=== PATIENT | male | born 1945 | race Caucasian/White ===

== ENCOUNTER 2017-11-27 06:09 | Day surgery (SDC) | payer MEDICARE, OTHER ==
[~2017-11-27] VITALS: Ht 180.3 cm; Wt 112.5 kg
[~2017-11-27 06:09] MED LIST: AMLO10 PO; Aspir 8181 MG PO; DOCU100 PO; FISH OIL 1,0001 EAC1 PO; METO25ER PO; NITR.4SL SL; OMEG1CAP30 PO; ZESTORETIC 20-121 EA PO
[2017-11-27] MEDS ORDERED: FURO20 PO (06:35)
[2017-11-27] MEDS ORDERED: Advair Hfa 230-12 GM (06:36)
[2017-11-27] MEDS ORDERED: Singulair4 M1 (06:36)
[2017-11-27] MEDS ORDERED: TAMS.4ER PO (06:36)
[2018-07-29] MEDS ORDERED: BUDE6HFA INH (12:07)
[2018-07-29] MEDS ORDERED: MONT10T PO (12:08)
[2018-08-02] MEDS ORDERED: ROBITUSSIN COU237 ML PO (19:57)
[2018-08-02] MEDS ORDERED: Omeprazole20 M1 PO (19:58)
[2018-08-02] MEDS ORDERED: XARELTO20 MG PO (19:58)
[2018-08-02] MEDS ORDERED: PROAIR RESPICL90 MCG INH (19:59)
[2018-08-02] MEDS ORDERED: PRED20 PO (20:02)
== END 2017-11-27 08:27 | disposition home or self-care (01) ==
LOC: ORSCSDS 06:09
PROVIDERS: Orthopaedic Surgery
PROC: 01N50ZZ Release Median Nerve, Open Approach (ICD-10-PCS; principal; 2017-11-27 07:30)
DX: G56.02 Carpal tunnel syndrome, left upper limb (principal); I10 Essential (primary) hypertension; I25.10 Atherosclerotic heart disease of native coronary artery without angina pectoris; J44.9 Chronic obstructive pulmonary disease, unspecified; E66.9 Obesity, unspecified; Z68.34 Body mass index [BMI] 34.0-34.9, adult; Z79.82 Long term (current) use of aspirin; Z79.899 Other long term (current) drug therapy

== ENCOUNTER 2019-07-08 12:11 | Emergency (ER) | payer MEDICARE, OTHER ==
[~2019-07-08] VITALS: Ht 182.9 cm; Wt 106.6 kg
[~2019-07-08 12:11] MED LIST changes: +Advair Hfa 230-12 GM; +BUDE6HFA INH; +FURO20 PO; +MONT10T PO; +Omeprazole20 M1 PO; +PRED20 PO; +PROAIR RESPICL90 MCG INH; +ROBITUSSIN COU237 ML PO; +Singulair4 M1; +TAMS.4ER PO; +XARELTO20 MG PO
[2019-07-08] MEDS ORDERED: ELIQUIS5 MG PO (12:26)
[2019-07-08 13:05] LABS: BASOPHILS ABSOLUTE AUTO 0.02 K/mm3 (0.00-0.23); BASOPHILS PERCENT AUTO 0 % (0-2); EOSINOPHILS ABSOLUTE AUTO 0.09 K/mm3 (0.00-0.68); EOSINOPHILS PERCENT AUTO 1 % (0-6); Hematocrit 44.6 % (37.0-53.0); Hemoglobin 14.8 g/dL (13.5-17.5); IMMATURE GRAN ABSOLUTE AUTO 0.02 K/mm3 (0.00-0.10); IMMATURE GRAN PERCENT AUTO 0 % (0-1); LYMPHOCYTES PERCENT AUTO 20 % (21-46); MONOCYTES ABSOLUTE AUTO 0.68 K/mm3 (0.16-1.47); MONOCYTES PERCENT AUTO 9 % (4-13); Mean Corpuscular HGB 30.6 pg (26.0-34.0); Mean Corpuscular HGB Conc 33.2 g/dL (31.5-36.5); Mean Corpuscular Volume 92 fL (80-100); Mean Platelet Volume 11.7 fL (9.1-12.4); NEUTROPHILS ABSOLUTE AUTO 5.32 K/mm3 (1.96-9.15); NEUTROPHILS PERCENT AUTO 70 % (41-73); Platelet Count 232 K/mm3 (150-400); RDW Coefficient Variation 14.5 % (11.7-14.2); RDW Standard Deviation 49.3 fL (35.1-46.3); Red Blood Cell Count 4.83 M/mm3 (4.30-5.90); White Blood Cell Count 7.63 K/mm3 (4.00-11.30)
[2019-07-08 13:29] LABS: Alanine Aminotransfer (ALT/SGP 24 U/L (12-78); Albumin, Blood 3.2 g/dL (3.4-5.0); Albumin/Globulin Ratio 0.7 (0.8-1.8); Alk Phos 86 U/L (50-136); Anion Gap 7 mmol/L (6-16); Aspartate Aminotrans (AST/SGOT 17 U/L (12-37); Bilirubin, Total 0.4 mg/dL (0.1-1.0); Blood Urea Nitrogen 15 mg/dL (8-24); Bun/Creatinine Ratio 14.9 (12.0-20.0); CO2, Blood 28 mmol/L (21-32); Calcium, Blood 8.9 mg/dL (8.5-10.1); Chloride, Blood 106 mmol/L (98-108); Creatinine, Blood 1.01 mg/dL (0.60-1.20); Globulin, Blood 4.3 g/dL (2.2-4.0); Glomerular Filtration Rate >60 (60-); Glucose, Blood 156 mg/dL (70-99); Potassium, Blood 3.5 mmol/L (3.5-5.5); Sodium, Blood 141 mmol/L (136-145); Total Protein, Blood 7.5 g/dL (6.4-8.2)
[2019-07-08 13:30] LABS: Troponin I <0.015 ng/mL (0.000-0.040)
== END 2019-07-08 14:35 | disposition home or self-care (01) ==
LOC: ER 12:11
PROVIDERS: Physician Assistant
DX: G93.89 Other specified disorders of brain (principal); E87.8 Other disorders of electrolyte and fluid balance, not elsewhere classified; I11.0 Hypertensive heart disease with heart failure; I50.9 Heart failure, unspecified; I25.10 Atherosclerotic heart disease of native coronary artery without angina pectoris; J44.9 Chronic obstructive pulmonary disease, unspecified; E78.5 Hyperlipidemia, unspecified; Z88.0 Allergy status to penicillin; Z88.8 Allergy status to other drugs, medicaments and biological substances; Z79.899 Other long term (current) drug therapy; Z87.891 Personal history of nicotine dependence
CPT/HCPCS: 36415; 70450; 80053; 84484; 85025; 93005; 93010; 99285-25

== ENCOUNTER 2020-01-22 11:54 | Emergency (ER) | payer MEDICARE, OTHER ==
[~2020-01-22] VITALS: Ht 170.2 cm; Wt 70.3 kg
[~2020-01-22 11:54] MED LIST changes: +ELIQUIS5 MG PO
[2020-01-22] MEDS ORDERED: SPIRONOLACTONE25 MG PO (12:52)
[2020-01-22] MEDS ORDERED: Robaxin-750750 MG PO (15:44)
[2020-01-22] MEDS ORDERED: METPRE4DP PO (15:44)
[2020-01-22] MEDS ORDERED: Acetaminophen-1 EAC1 PO (15:44)
[2020-01-22] MEDS ORDERED: ULTRA-LIGHT RO1 EACH MC (15:45)
== END 2020-01-22 16:29 | disposition home or self-care (01) ==
LOC: ER 11:54
DX: M47.26 Other spondylosis with radiculopathy, lumbar region (principal); I10 Essential (primary) hypertension; J44.9 Chronic obstructive pulmonary disease, unspecified; I25.10 Atherosclerotic heart disease of native coronary artery without angina pectoris; Z88.0 Allergy status to penicillin; Z88.8 Allergy status to other drugs, medicaments and biological substances; Z79.899 Other long term (current) drug therapy; Z79.01 Long term (current) use of anticoagulants; Z79.51 Long term (current) use of inhaled steroids
CPT/HCPCS: 72100; 96374; 96375; 97116; 97163; 97530; 99284-25; J1100; J1170; J2405

== ENCOUNTER 2020-02-28 13:08 | Emergency (ER) | payer MEDICARE, OTHER ==
[~2020-02-28] VITALS: Ht 172.7 cm; Wt 83.9 kg
[~2020-02-28 13:08] MED LIST changes: +Acetaminophen-1 EAC1 PO; -ELIQUIS5 MG PO; +METPRE4DP PO; +Robaxin-750750 MG PO; +SPIRONOLACTONE25 MG PO; +ULTRA-LIGHT RO1 EACH MC
[2020-02-28 14:31] LABS: BASOPHILS ABSOLUTE AUTO 0.04 K/mm3 (0.00-0.23); BASOPHILS PERCENT AUTO 1 % (0-2); EOSINOPHILS ABSOLUTE AUTO 0.06 K/mm3 (0.00-0.68); EOSINOPHILS PERCENT AUTO 1 % (0-6); Hemoglobin 14.2 g/dL (13.5-17.5); IMMATURE GRAN ABSOLUTE AUTO 0.02 K/mm3 (0.00-0.10); IMMATURE GRAN PERCENT AUTO 0 % (0-1); LYMPHOCYTES ABSOLUTE AUTO 1.29 K/mm3 (0.84-5.20); LYMPHOCYTES PERCENT AUTO 16 % (21-46); MONOCYTES ABSOLUTE AUTO 0.87 K/mm3 (0.16-1.47); MONOCYTES PERCENT AUTO 11 % (4-13); Mean Corpuscular HGB 31.2 pg (26.0-34.0); Mean Corpuscular HGB Conc 31.6 g/dL (31.5-36.5); Mean Corpuscular Volume 99 fL (80-100); Mean Platelet Volume 12.8 fL (9.1-12.4); NEUTROPHILS ABSOLUTE AUTO 5.76 K/mm3 (1.96-9.15); NEUTROPHILS PERCENT AUTO 72 % (41-73); Platelet Count 147 K/mm3 (150-400); RDW Coefficient Variation 13.5 % (11.7-14.2); RDW Standard Deviation 49.4 fL (35.1-46.3); Red Blood Cell Count 4.55 M/mm3 (4.30-5.90); Troponin I <0.015 ng/mL (0.000-0.040); White Blood Cell Count 8.04 K/mm3 (4.00-11.30)
[2020-02-28 14:32] LABS: Alanine Aminotransfer (ALT/SGP 49 U/L (12-78); Albumin, Blood 3.2 g/dL (3.4-5.0); Albumin/Globulin Ratio 0.9 (0.8-1.8); Alk Phos 207 U/L (50-136); Anion Gap 5 mmol/L (6-16); Aspartate Aminotrans (AST/SGOT 27 U/L (12-37); Bilirubin, Total 1.1 mg/dL (0.1-1.0); Blood Urea Nitrogen 23 mg/dL (8-24); Bun/Creatinine Ratio 12.2 (12.0-20.0); CO2, Blood 26 mmol/L (21-32); Calcium, Blood 8.7 mg/dL (8.5-10.1); Chloride, Blood 108 mmol/L (98-108); Creatinine, Blood 1.89 mg/dL (0.60-1.20); Globulin, Blood 3.7 g/dL (2.2-4.0); Glomerular Filtration Rate 37 (60-); Glucose, Blood 132 mg/dL (70-99); Potassium, Blood 4.5 mmol/L (3.5-5.5); Sodium, Blood 139 mmol/L (136-145); Total Protein, Blood 6.9 g/dL (6.4-8.2)
[2020-02-28 15:03] LABS: Free Thyroxine 1.16 ng/dL (0.70-1.60)
[2020-02-28 15:06] LABS: Thyroid Stimulating Hormone 1.63 uIU/mL (0.360-4.800)
[2020-02-28] MEDS ORDERED: LOSA50 PO (15:30)
[2020-02-28] MEDS ORDERED: ABAT250V (15:31)
[2020-02-28] MEDS ORDERED: ELIQUIS5 MG PO (15:31)
== END 2020-02-28 17:00 | disposition home or self-care (01) ==
LOC: ER 13:08
PROVIDERS: Emergency Medicine
DX: R00.1 Bradycardia, unspecified (principal); R42 Dizziness and giddiness; I10 Essential (primary) hypertension; J44.9 Chronic obstructive pulmonary disease, unspecified; I25.10 Atherosclerotic heart disease of native coronary artery without angina pectoris; Z88.0 Allergy status to penicillin; Z88.8 Allergy status to other drugs, medicaments and biological substances; Z79.899 Other long term (current) drug therapy; Z79.01 Long term (current) use of anticoagulants
CPT/HCPCS: 36415; 71046; 80053; 83690; 83735; 84439; 84443; 84484; 85025; 93005; 93010; 99284-25

== ENCOUNTER 2020-11-09 23:32 | Emergency (ER) | payer MEDICARE, OTHER ==
[~2020-11-09] VITALS: Ht 180.3 cm; Wt 104.3 kg
[~2020-11-09 23:32] MED LIST changes: +ABAT250V; -TAMS.4ER PO
[2020-11-10 00:47] LABS: BASOPHILS ABSOLUTE AUTO 0.02 K/mm3 (0.00-0.23); BASOPHILS PERCENT AUTO 0 % (0-2); EOSINOPHILS ABSOLUTE AUTO 0.06 K/mm3 (0.00-0.68); EOSINOPHILS PERCENT AUTO 1 % (0-6); Hematocrit 39.3 % (37.0-53.0); Hemoglobin 13.5 g/dL (13.5-17.5); IMMATURE GRAN ABSOLUTE AUTO 0.02 K/mm3 (0.00-0.10); IMMATURE GRAN PERCENT AUTO 0 % (0-1); LYMPHOCYTES ABSOLUTE AUTO 0.43 K/mm3 (0.84-5.20); LYMPHOCYTES PERCENT AUTO 6 % (21-46); MONOCYTES ABSOLUTE AUTO 0.81 K/mm3 (0.16-1.47); MONOCYTES PERCENT AUTO 11 % (4-13); Mean Corpuscular HGB 33.2 pg (26.0-34.0); Mean Corpuscular HGB Conc 34.4 g/dL (31.5-36.5); Mean Corpuscular Volume 97 fL (80-100); Mean Platelet Volume 11.1 fL (9.1-12.4); NEUTROPHILS PERCENT AUTO 82 % (41-73); Platelet Count 139 K/mm3 (150-400); RDW Coefficient Variation 13.4 % (11.7-14.2); RDW Standard Deviation 48.5 fL (35.1-46.3); Red Blood Cell Count 4.07 M/mm3 (4.30-5.90); White Blood Cell Count 7.44 K/mm3 (4.00-11.30)
[2020-11-10 01:04] LABS: Anion Gap 7 mmol/L (6-16); Blood Urea Nitrogen 28 mg/dL (8-24); Bun/Creatinine Ratio 19.9 (12.0-20.0); CO2, Blood 22 mmol/L (21-32); Calcium, Blood 8.9 mg/dL (8.5-10.1); Chloride, Blood 111 mmol/L (98-108); Creatinine, Blood 1.41 mg/dL (0.60-1.20); Glomerular Filtration Rate 52 (60-); Glucose, Blood 113 mg/dL (70-99); Potassium, Blood 4.6 mmol/L (3.5-5.5); Sodium, Blood 140 mmol/L (136-145); Troponin I <0.015 ng/mL (0.000-0.040)
[2020-11-10 02:37] LABS: Source, Urine Clean Catch
[2020-11-10 02:39] LABS: Bilirubin, Urine Neg (Neg); Blood, Urine Neg (Neg); Color, Urine Yellow (P-Yellow); Glucose Qualitative, Urine Neg (Neg); Ketones, Urine Neg (Neg); Leukocyte Esterase, Urine Neg (Neg); Nitrite, Urine Neg (Neg); Protein, Urine Neg (Neg); Urobilinogen, Urine NORM (Normal)
[2020-11-10 02:40] LABS: Appearance, Urine Clear (Clear)
== END 2020-11-10 04:38 | disposition home or self-care (01) ==
LOC: ER 23:32
PROVIDERS: Student in an Organized Health Care Education/Training Program
DX: R53.1 Weakness (principal); I10 Essential (primary) hypertension; Z88.0 Allergy status to penicillin; Z88.8 Allergy status to other drugs, medicaments and biological substances; Z79.899 Other long term (current) drug therapy; Z87.891 Personal history of nicotine dependence
CPT/HCPCS: 70450; 80048; 81003; 84484; 85025; 93005; 93010; 99284-25

== ENCOUNTER 2020-12-30 19:00 | Observation (INO) | payer MEDICARE, OTHER ==
[~2020-12-30] VITALS: Ht 177.8 cm; Wt 98.7 kg
[2020-12-30 19:31] LABS: BASOPHILS ABSOLUTE AUTO 0.02 K/mm3 (0.00-0.23); BASOPHILS PERCENT AUTO 0 % (0-2); EOSINOPHILS ABSOLUTE AUTO 0.14 K/mm3 (0.00-0.68); EOSINOPHILS PERCENT AUTO 3 % (0-6); Hematocrit 31.2 % (37.0-53.0); Hemoglobin 10.4 g/dL (13.5-17.5); IMMATURE GRAN ABSOLUTE AUTO 0.04 K/mm3 (0.00-0.10); IMMATURE GRAN PERCENT AUTO 1 % (0-1); LYMPHOCYTES ABSOLUTE AUTO 1.15 K/mm3 (0.84-5.20); LYMPHOCYTES PERCENT AUTO 21 % (21-46); MONOCYTES ABSOLUTE AUTO 0.64 K/mm3 (0.16-1.47); MONOCYTES PERCENT AUTO 12 % (4-13); Mean Corpuscular HGB 33.7 pg (26.0-34.0); Mean Corpuscular HGB Conc 33.3 g/dL (31.5-36.5); Mean Corpuscular Volume 101 fL (80-100); Mean Platelet Volume 12.3 fL (9.1-12.4); NEUTROPHILS ABSOLUTE AUTO 3.48 K/mm3 (1.96-9.15); NEUTROPHILS PERCENT AUTO 64 % (41-73); Platelet Count 190 K/mm3 (150-400); RDW Coefficient Variation 15.7 % (11.7-14.2); RDW Standard Deviation 58.1 fL (35.1-46.3); Red Blood Cell Count 3.09 M/mm3 (4.30-5.90); White Blood Cell Count 5.47 K/mm3 (4.00-11.30)
[2020-12-30 19:42] LABS: Albumin, Blood 2.6 g/dL (3.4-5.0); Albumin/Globulin Ratio 0.9 (0.8-1.8); Bilirubin, Total 1.7 mg/dL (0.1-1.0); Bun/Creatinine Ratio 16.1 (12.0-20.0); Calcium, Blood 8.3 mg/dL (8.5-10.1); Creatinine, Blood 1.86 mg/dL (0.60-1.20); Globulin, Blood 2.8 g/dL (2.2-4.0); Potassium, Blood 4.9 mmol/L (3.5-5.5); Total Protein, Blood 5.4 g/dL (6.4-8.2)
[2020-12-30 20:48] LABS: Source, Urine Clean Catch
[2020-12-30 20:52] LABS: Appearance, Urine Clear (Clear); Bilirubin, Urine Neg (Neg); Blood, Urine Neg (Neg); Color, Urine Amber (P-Yellow); Glucose Qualitative, Urine Neg (Neg); Ketones, Urine Neg (Neg); Leukocyte Esterase, Urine 1+ (Neg); Nitrite, Urine Neg (Neg); Protein, Urine Neg (Neg); Urobilinogen, Urine NORM (Normal); pH, Urine 6.5 (5.0-8.0)
[2020-12-30 21:00] LABS: Bacteria Mod /hpf; Red Blood Cells, Urine 0-2 /hpf (0-2); Squamous Epithelial Cells Few /hpf (Few); White Blood Cells, Urine 0-2 /hpf (0-5)
[2020-12-30] MEDS ORDERED: TRAZ50 PO (22:18)
[2020-12-30] MEDS ORDERED: ELIQUIS5 MG PO (22:18)
[2020-12-30] MEDS ORDERED: LOSA50 PO (22:19)
[2020-12-30] MEDS ORDERED: SPIR25 PO (22:19)
[2020-12-30] MEDS ORDERED: TAMS.4ER PO (22:19)
--- NOTE | 2020-12-31 01:04 | NUR ---
DEVICE INTERREGATION DONE IN ER AT THE TIME OF ORDER, PACEMAKER WNL.
--- NOTE | 2020-12-31 01:41 | NUR ---
ADMISSION HX OBTAINED ADMISSION HISTORY FROM [facility]. POOR HISTORIAN. PT STATES THAT HE DOES NOT KNOW HIS MEDICAL HISTORY, WAS ABLE TO ANSWER SOME QUESTIONS. MED REC INCOMPLETE. SCREW MACHINE HAND LIBERTAD MCDANIEL RN AWARE.
--- NOTE | 2020-12-31 04:18 | NUR ---
SHIFT SUMMARY PT ER ADMIT THIS SHIFT OBS STATUS FOR SYNCOPE. PT HAS HAD NO EPISODES OF SYNCOPE SINCE ARRIVING TO THE UNIT ORTHOSTATIC VITALS ARE NEGATIVE. PT A/O TO SELF, PLACE, PRESIDENT. FORGETFUL TO YEAR AND TIME. IVF INFUSING ORDERED. NO COMPLAINTS SINCE ARRIVING TO THE UNIT. PENDING CARDIOLOGY CONSULT AT THIS TIME. NSR ON TELE. VITALS STABLE. BED IN LOWEST POSITION, CALL LIGHT WITHIN REACH.
[2020-12-31 07:43] LABS: BASOPHILS ABSOLUTE AUTO 0.03 K/mm3 (0.00-0.23); BASOPHILS PERCENT AUTO 0 % (0-2); EOSINOPHILS ABSOLUTE AUTO 0.15 K/mm3 (0.00-0.68); EOSINOPHILS PERCENT AUTO 2 % (0-6); Hematocrit 32.8 % (37.0-53.0); Hemoglobin 10.9 g/dL (13.5-17.5); IMMATURE GRAN ABSOLUTE AUTO 0.03 K/mm3 (0.00-0.10); IMMATURE GRAN PERCENT AUTO 0 % (0-1); LYMPHOCYTES ABSOLUTE AUTO 1.18 K/mm3 (0.84-5.20); LYMPHOCYTES PERCENT AUTO 16 % (21-46); MONOCYTES ABSOLUTE AUTO 0.88 K/mm3 (0.16-1.47); MONOCYTES PERCENT AUTO 12 % (4-13); Mean Corpuscular HGB 33.7 pg (26.0-34.0); Mean Corpuscular HGB Conc 33.2 g/dL (31.5-36.5); Mean Corpuscular Volume 102 fL (80-100); Mean Platelet Volume 12.6 fL (9.1-12.4); NEUTROPHILS ABSOLUTE AUTO 5.17 K/mm3 (1.96-9.15); NEUTROPHILS PERCENT AUTO 70 % (41-73); Platelet Count 184 K/mm3 (150-400); RDW Coefficient Variation 15.6 % (11.7-14.2); RDW Standard Deviation 57.7 fL (35.1-46.3); Red Blood Cell Count 3.23 M/mm3 (4.30-5.90); White Blood Cell Count 7.44 K/mm3 (4.00-11.30)
[2020-12-31 08:07] LABS: Bun/Creatinine Ratio 18.5 (12.0-20.0); Calcium, Blood 8.2 mg/dL (8.5-10.1); Creatinine, Blood 1.57 mg/dL (0.60-1.20); Potassium, Blood 4.7 mmol/L (3.5-5.5)
--- NOTE | 2020-12-31 17:26 | NUR ---
SUMMARY PT SITTING UP IN BED WATCHING TV AND VISITING WITH HIS , PT IS ALERT AND ORIENTED, [place], PLEASANT AND COOPERATIVE WITH CARE, NO SYNCOPE OR DIZZINESS T/O THE DAY, PT UP WITH 1P ASSIST, AND ABLE TO TAKE A SHOWER TODAY, PT DENIES ANY CHEST PAIN OR SOB, HOPEFUL TO DC HOME TOMORROW, VSS, WILL CONT TO MONITOR
[2021-01-01 04:46] LABS: Hematocrit 31.5 % (37.0-53.0); Hemoglobin 10.4 g/dL (13.5-17.5); Mean Corpuscular Volume 103 fL (80-100); Mean Platelet Volume 12.4 fL (9.1-12.4); Platelet Count 170 K/mm3 (150-400); RDW Coefficient Variation 15.7 % (11.7-14.2); RDW Standard Deviation 58.9 fL (35.1-46.3); Red Blood Cell Count 3.06 M/mm3 (4.30-5.90); White Blood Cell Count 5.62 K/mm3 (4.00-11.30)
[2021-01-01 05:30] LABS: Albumin, Blood 2.4 g/dL (3.4-5.0); Anion Gap 5 mmol/L (6-16); Blood Urea Nitrogen 24 mg/dL (8-24); Bun/Creatinine Ratio 17.4 (12.0-20.0); CO2, Blood 25 mmol/L (21-32); Calcium, Blood 8.4 mg/dL (8.5-10.1); Chloride, Blood 110 mmol/L (98-108); Creatinine, Blood 1.38 mg/dL (0.60-1.20); Ferritin, Serum 657 ng/mL (26-388); Glomerular Filtration Rate 53 (60-); Glucose, Blood 91 mg/dL (70-99); Iron Serum 143 ug/dL (65-175); Percent Saturation 67.1 % (20.0-50.0); Phosphorus, Blood 3.2 mg/dL (2.5-4.9); Potassium, Blood 4.7 mmol/L (3.5-5.5); Sodium, Blood 140 mmol/L (136-145); Total Iron Binding Capacity 213 ug/dL (250-450)
--- NOTE | 2021-01-01 05:55 | NUR ---
PT IS A/O, LONE PINE. IND TO BATHROOM, TELE MONITOR PACED. POSSIBLE D/C HOME TODAY.
--- NOTE | 2021-01-01 15:43 | NUR ---
PATIENT DISCHARGE: PATIENT DISCHARGED TO HOME THIS SHIFT. MEDICATION RECONCILIATION COMPLETED; MED LIST FAXED TO [facility] IN [place]. DISCHARGE EDUCATION COMPLETED WITH PATIENT AND FAMILY. PATIENT TRANSPORTED TO EXIT BY [facility] STAFF WITH WHEELCHAIR AT 1516. PATIENT DEPARTED [facility] VIA PRIVATE AUTO.
== END 2021-01-01 15:15 | disposition home or self-care (01) ==
LOC: ER 19:00 → MEDS 19:01
PROVIDERS: Emergency Medicine; Internal Medicine; ADMIT Family Medicine
DX: R55 Syncope and collapse (principal); I95.1 Orthostatic hypotension; E86.0 Dehydration; I12.9 Hypertensive chronic kidney disease with stage 1 through stage 4 chronic kidney disease, or unspecified chronic kidney disease; N18.30 Chronic kidney disease, stage 3 unspecified; D63.8 Anemia in other chronic diseases classified elsewhere; I25.10 Atherosclerotic heart disease of native coronary artery without angina pectoris; I48.0 Paroxysmal atrial fibrillation; N40.0 Benign prostatic hyperplasia without lower urinary tract symptoms; G51.0 Bell's palsy; J44.9 Chronic obstructive pulmonary disease, unspecified; N17.9 Acute kidney failure, unspecified; E78.00 Pure hypercholesterolemia, unspecified; R82.90 Unspecified abnormal findings in urine; I48.92 Unspecified atrial flutter; Z88.0 Allergy status to penicillin; Z88.8 Allergy status to other drugs, medicaments and biological substances; Z79.01 Long term (current) use of anticoagulants; Z95.1 Presence of aortocoronary bypass graft; Z87.891 Personal history of nicotine dependence; Z95.0 Presence of cardiac pacemaker; Z85.841 Personal history of malignant neoplasm of brain; Z85.528 Personal history of other malignant neoplasm of kidney; Z90.5 Acquired absence of kidney; Z66 Do not resuscitate
CPT/HCPCS: 36415; 70450; 80048; 80053; 80069; 81001; 82607; 82728; 82746; 83540; 83550; 83735; 84484; 85025; 85027; 87086; 93005; 93010; 93308; 93321; 97110; 97161; 99285-25; A9270; J7030

== ENCOUNTER 2021-02-13 13:51 | Observation (INO) | payer MEDICARE, OTHER ==
[~2021-02-13] VITALS: Ht 177.8 cm; Wt 101.6 kg
[~2021-02-13 13:51] MED LIST changes: +ELIQUIS5 MG PO; +LOSA50 PO; +SPIR25 PO; +TAMS.4ER PO; +TRAZ50 PO
[2021-02-13 14:31] LABS: BASOPHILS ABSOLUTE AUTO 0.02 K/mm3 (0.00-0.23); BASOPHILS PERCENT AUTO 0 % (0-2); EOSINOPHILS ABSOLUTE AUTO 0.02 K/mm3 (0.00-0.68); EOSINOPHILS PERCENT AUTO 0 % (0-6); Hematocrit 41.5 % (37.0-53.0); Hemoglobin 13.7 g/dL (13.5-17.5); IMMATURE GRAN ABSOLUTE AUTO 0.02 K/mm3 (0.00-0.10); IMMATURE GRAN PERCENT AUTO 0 % (0-1); LYMPHOCYTES ABSOLUTE AUTO 0.22 K/mm3 (0.84-5.20); LYMPHOCYTES PERCENT AUTO 3 % (21-46); MONOCYTES ABSOLUTE AUTO 0.67 K/mm3 (0.16-1.47); MONOCYTES PERCENT AUTO 8 % (4-13); Mean Corpuscular Volume 103 fL (80-100); Mean Platelet Volume 11.5 fL (9.1-12.4); NEUTROPHILS ABSOLUTE AUTO 7.58 K/mm3 (1.96-9.15); NEUTROPHILS PERCENT AUTO 89 % (41-73); Platelet Count 144 K/mm3 (150-400); RDW Coefficient Variation 13.3 % (11.7-14.2); RDW Standard Deviation 51.2 fL (35.1-46.3); Red Blood Cell Count 4.03 M/mm3 (4.30-5.90); White Blood Cell Count 8.53 K/mm3 (4.00-11.30)
[2021-02-13 14:32] LABS: Source, Urine Clean Catch
[2021-02-13 14:37] LABS: Appearance, Urine Clear (Clear); Bilirubin, Urine Neg (Neg); Blood, Urine Neg (Neg); Color, Urine Yellow (P-Yellow); Glucose Qualitative, Urine Neg (Neg); Ketones, Urine Neg (Neg); Leukocyte Esterase, Urine Neg (Neg); Nitrite, Urine Neg (Neg); Protein, Urine 1+ (Neg); Specific Gravity, Urine 1.015 (1.003-1.022); Urobilinogen, Urine NORM (Normal)
[2021-02-13 14:40] LABS: Alanine Aminotransfer (ALT/SGP 292 U/L (12-78); Albumin, Blood 3.4 g/dL (3.4-5.0); Albumin/Globulin Ratio 0.9 (0.8-1.8); Alk Phos 202 U/L (50-136); Anion Gap 2 mmol/L (6-16); Aspartate Aminotrans (AST/SGOT 290 U/L (12-37); Bilirubin, Total 1.1 mg/dL (0.1-1.0); Blood Urea Nitrogen 16 mg/dL (8-24); Bun/Creatinine Ratio 12.5 (12.0-20.0); CO2, Blood 26 mmol/L (21-32); Calcium, Blood 8.7 mg/dL (8.5-10.1); Chloride, Blood 105 mmol/L (98-108); Creatinine, Blood 1.28 mg/dL (0.60-1.20); Globulin, Blood 3.6 g/dL (2.2-4.0); Glomerular Filtration Rate 58 (60-); Glucose, Blood 106 mg/dL (70-99); Potassium, Blood 4.5 mmol/L (3.5-5.5); Sodium, Blood 133 mmol/L (136-145); Troponin I <0.015 ng/mL (0.000-0.040)
[2021-02-13 15:07] LABS: BAND PERCENT MAN 8 % (0-8); BASOPHILS PERCENT MAN 0 % (0-2); EOSINOPHILS PERCENT MAN 0 % (0-6); LYMPHOCYTES ABSOLUTE MAN 0.25 K/mm3 (0.84-5.20); LYMPHOCYTES PERCENT MAN 3 % (21-46); MONOCYTES ABSOLUTE MAN 0.42 K/mm3 (0.16-1.47); MONOCYTES PERCENT MAN 5 % (4-13); NEUTROPHILS ABSOLUTE MAN 7.84 K/mm3 (1.96-9.15); SEG NEUTROPHILS PERCENT MAN 84 % (41-73); TOTAL CELLS COUNTED 100
[2021-02-13] MEDS ORDERED: MONT10T PO (22:10)
[2021-02-13] MEDS ORDERED: THERA-D2000 UNIT PO (22:11)
--- NOTE | 2021-02-13 22:55 | NUR ---
PT ADMITTED TO FLOOR AT 2055. PT IS ABLE TO ANSWER QUESTIONS APPROPRIATELY BUT IS FORTGETFUL AND IS A POOR HISTORIAN. TEMP OF 100.8 ORALLY UPON ADMISSION. ROOM TEMP TURNED DOWN, ONLY A THIN SHEET ON, SOCKS TAKEN OFF AND A COOL WASHCLOTH APPLIED TO FOREHEAD. PT DENIES CHILLS AND MUSCLE ACHES. HOSPALIST JULIO NOTIFIED OF TEMP. NO NEW ORDERS- STATES CONTINUE TO WATCH. WILL CONTINUE TO MONITOR. TEMP RE-ASSESSED. INCREASED TO 101.6 F ORALLY. ICE PACK PROVIDED UNDER BILATERALLY AXILLARY, FAN PROVIDED, COOL WASHCLOTH ON FOREHEAD. ENCOURAGED TO DRINK ICE WATER. BED ALARM ON, WILL CONTINUE TO MONITOR.
[2021-02-13 23:02] LABS: SARS-Cov-2 (COVID-19) PCR, MMC NEGATIVE (NEGATIVE)
[2021-02-14 04:45] LABS: BASOPHILS ABSOLUTE AUTO 0.02 K/mm3 (0.00-0.23); BASOPHILS PERCENT AUTO 0 % (0-2); EOSINOPHILS ABSOLUTE AUTO 0.04 K/mm3 (0.00-0.68); EOSINOPHILS PERCENT AUTO 1 % (0-6); Hematocrit 35.1 % (37.0-53.0); Hemoglobin 11.7 g/dL (13.5-17.5); IMMATURE GRAN ABSOLUTE AUTO 0.03 K/mm3 (0.00-0.10); IMMATURE GRAN PERCENT AUTO 0 % (0-1); LYMPHOCYTES ABSOLUTE AUTO 0.55 K/mm3 (0.84-5.20); LYMPHOCYTES PERCENT AUTO 7 % (21-46); MONOCYTES ABSOLUTE AUTO 0.87 K/mm3 (0.16-1.47); MONOCYTES PERCENT AUTO 11 % (4-13); Mean Corpuscular HGB 33.6 pg (26.0-34.0); Mean Corpuscular HGB Conc 33.3 g/dL (31.5-36.5); Mean Corpuscular Volume 101 fL (80-100); Mean Platelet Volume 11.8 fL (9.1-12.4); NEUTROPHILS ABSOLUTE AUTO 6.27 K/mm3 (1.96-9.15); NEUTROPHILS PERCENT AUTO 81 % (41-73); Platelet Count 123 K/mm3 (150-400); RDW Coefficient Variation 13.2 % (11.7-14.2); RDW Standard Deviation 49.5 fL (35.1-46.3); Red Blood Cell Count 3.48 M/mm3 (4.30-5.90); White Blood Cell Count 7.78 K/mm3 (4.00-11.30)
--- NOTE | 2021-02-14 04:46 | NUR ---
OUTBOUND SALES AGENT SUMMARY PT IS A/O X3 WITH FORGETFULNESS. TEMPATURE IS BACK TO NORMAL. PT DENIES CHILLS. INCONTIENT TO BLADDER, ATTENDS IN PLACE. ROOM AIR, MAINTAINING GOOD 02 SATS. SKIN APPEARS C.D.I. SCDS IN PLACE. DENIES PAIN, SOB, NAUSEA. VSS. BED ALARM ON, CALL LIGHT WITHIN REACH. WILL CONTINIUE TO MONITOR.
[2021-02-14 05:03] LABS: Albumin, Blood 2.7 g/dL (3.4-5.0); Albumin/Globulin Ratio 0.9 (0.8-1.8); Bun/Creatinine Ratio 10.8 (12.0-20.0); Calcium, Blood 8.1 mg/dL (8.5-10.1); Creatinine, Blood 1.3 mg/dL (0.60-1.20); Globulin, Blood 3.1 g/dL (2.2-4.0); Magnesium, Blood 1.9 mg/dL (1.6-2.4); Potassium, Blood 3.9 mmol/L (3.5-5.5); Total Protein, Blood 5.8 g/dL (6.4-8.2)
--- NOTE | 2021-02-14 10:34 | NUR ---
CODE STATUS CHANGE- FULL CODE AFTER DISCUSSION WITH THE PT & HIS , THEY ARE BOTH WANTING RESUSITATION TO BE ATTEPTED BEFORE TREATMENT IS WITHDRAWN. DR. BENSON NOTIFIED & PT CHANGED TO FULL CODE. PURPLE WRIST BAND REMOVED.
--- NOTE | 2021-02-14 14:08 | NUR ---
REPORT CALLED TO TAMIKA. REPORT CALLED TO T[facility]IKA NURSE, WENDIE.
--- NOTE | 2021-02-14 14:09 | NUR ---
FLAGYL GIVEN EARLY PER MD VERBAL ORDER.
--- NOTE | 2021-02-14 15:15 | NUR ---
DISCHARGE PT DISCHARGED WITH [facility] TO TRANSPORT TO [facility]. PT AT BEDSIDE & WILL BE DRIVING TO [place] LATER TODAY. PARAMEDICS DENIED FURTHER QUESTIONS AT THIS TIME.
--- NOTE | 2021-02-14 15:20 | NUR ---
RAILROAD CRANE OPERATOR DOC REVIEW THIS RN ASSESSED THE PT. THIS RN REVIEWED AND AGREES WITH STUDENTS DOCUMENTATION AND ASSESSMENT.
[2021-02-15 07:08] LABS: HBSAG SCREEN Negative (Negative); HEP A AB, IGM Negative (Negative); HEP B CORE AB, IGM Negative (Negative); HEP B CORE AB, TOT Negative (Negative); HEP C VIRUS AB <0.1 (0.0-0.9)
== END 2021-02-14 15:08 | disposition short-term general hospital (02) ==
LOC: ER 13:51 → MEDS 13:52 → ENPENDDIS 02-14 13:56 → MEDS 02-14 15:08
PROVIDERS: Emergency Medicine; Nurse Practitioner Acute Care; ADMIT Internal Medicine
DX: R50.9 Fever, unspecified (principal); R74.01 Elevation of levels of liver transaminase levels; R79.89 Other specified abnormal findings of blood chemistry; R93.2 Abnormal findings on diagnostic imaging of liver and biliary tract; D64.9 Anemia, unspecified; E87.1 Hypo-osmolality and hyponatremia; I12.9 Hypertensive chronic kidney disease with stage 1 through stage 4 chronic kidney disease, or unspecified chronic kidney disease; N18.30 Chronic kidney disease, stage 3 unspecified; I25.10 Atherosclerotic heart disease of native coronary artery without angina pectoris; I48.0 Paroxysmal atrial fibrillation; G89.29 Other chronic pain; M54.9 Dorsalgia, unspecified; J44.9 Chronic obstructive pulmonary disease, unspecified; E78.00 Pure hypercholesterolemia, unspecified; I48.92 Unspecified atrial flutter; N40.0 Benign prostatic hyperplasia without lower urinary tract symptoms; Z20.822 Contact with and (suspected) exposure to COVID-19; Z87.891 Personal history of nicotine dependence; Z95.1 Presence of aortocoronary bypass graft; Z79.01 Long term (current) use of anticoagulants; Z85.841 Personal history of malignant neoplasm of brain; Z85.528 Personal history of other malignant neoplasm of kidney; Z90.5 Acquired absence of kidney; Z95.0 Presence of cardiac pacemaker; Z88.0 Allergy status to penicillin; Z88.8 Allergy status to other drugs, medicaments and biological substances; Z96.89 Presence of other specified functional implants; Z85.09 Personal history of malignant neoplasm of other digestive organs; Z92.3 Personal history of irradiation; Z98.890 Other specified postprocedural states; Z86.79 Personal history of other diseases of the circulatory system
CPT/HCPCS: 36415; 71045; 74177; 76705; 80053; 80074; 82140; 83605; 83735; 84145; 84484; 85025; 86317; 86704; 86708; 86803; 87040; 87340; 93005; 93010; 96365-59; 96366; 96375; 97110; 97161; 99285-25; A9270; G0378; J1956; J7030; Q9967; U0004

== ENCOUNTER 2021-09-02 09:52 | Observation (INO) | payer MEDICARE, OTHER ==
[~2021-09-02] VITALS: Ht 182.9 cm; Wt 100.5 kg
[~2021-09-02 09:52] MED LIST changes: +THERA-D2000 UNIT PO
[2021-09-02] MEDS ORDERED: METOPROLOL SUCC25 MG PO (10:15)
[2021-09-02 10:50] LABS: BASOPHILS ABSOLUTE AUTO 0.01 K/mm3 (0.00-0.23); BASOPHILS PERCENT AUTO 0 % (0-2); EOSINOPHILS ABSOLUTE AUTO 0.01 K/mm3 (0.00-0.68); EOSINOPHILS PERCENT AUTO 0 % (0-6); Hematocrit 33.5 % (37.0-53.0); Hemoglobin 11.2 g/dL (13.5-17.5); IMMATURE GRAN ABSOLUTE AUTO 0.02 K/mm3 (0.00-0.10); IMMATURE GRAN PERCENT AUTO 0 % (0-1); LYMPHOCYTES ABSOLUTE AUTO 0.67 K/mm3 (0.84-5.20); LYMPHOCYTES PERCENT AUTO 8 % (21-46); MONOCYTES ABSOLUTE AUTO 1.56 K/mm3 (0.16-1.47); MONOCYTES PERCENT AUTO 19 % (4-13); Mean Corpuscular HGB 35.3 pg (26.0-34.0); Mean Corpuscular HGB Conc 33.4 g/dL (31.5-36.5); Mean Corpuscular Volume 106 fL (80-100); Mean Platelet Volume 11.9 fL (9.1-12.4); NEUTROPHILS ABSOLUTE AUTO 5.83 K/mm3 (1.96-9.15); NEUTROPHILS PERCENT AUTO 72 % (41-73); Platelet Count 72 K/mm3 (150-400); RDW Coefficient Variation 16.3 % (11.7-14.2); RDW Standard Deviation 64.8 fL (35.1-46.3); Red Blood Cell Count 3.17 M/mm3 (4.30-5.90)
[2021-09-02 10:57] LABS: Albumin, Blood 3.2 g/dL (3.4-5.0); Albumin/Globulin Ratio 1.1 (0.8-1.8); Bilirubin, Total 0.5 mg/dL (0.1-1.0); Bun/Creatinine Ratio 10.4 (12.0-20.0); Calcium, Blood 8.6 mg/dL (8.5-10.1); Creatinine, Blood 1.35 mg/dL (0.60-1.20); Potassium, Blood 4.2 mmol/L (3.5-5.5); Total Protein, Blood 6.2 g/dL (6.4-8.2); Troponin I 0.023 ng/mL (0.000-0.040)
[2021-09-02 12:24] LABS: Source, Urine Voided
[2021-09-02 12:28] LABS: Bilirubin, Urine Neg (Neg); Blood, Urine 1+ (Neg); Color, Urine Yellow (P-Yellow); Glucose Qualitative, Urine Neg (Neg); Ketones, Urine Neg (Neg); Leukocyte Esterase, Urine Neg (Neg); Nitrite, Urine Neg (Neg); Protein, Urine 2+ (Neg); Specific Gravity, Urine 1.015 (1.003-1.022); Urobilinogen, Urine NORM (Normal)
[2021-09-02 12:37] LABS: Appearance, Urine Hazy (Clear)
[2021-09-02 12:38] LABS: Amorphous Light (0-Heavy); Bacteria Few /hpf; Squamous Epithelial Cells Few /hpf (Few); White Blood Cells, Urine 0-2 /hpf (0-5)
[2021-09-02 14:49] LABS: Influenza A, PCR NEGATIVE (NEGATIVE); Influenza B, PCR NEGATIVE (NEGATIVE); Resp Syncytial Virus, PCR NEGATIVE (NEGATIVE); SARS-Cov-2 (COVID-19) PCR, MMC NEGATIVE (NEGATIVE)
--- NOTE | 2021-09-03 02:09 | NUR ---
Admission: Pt. arrived to floor extremely weak needing a slide sheet to bed. He is A/Ox 3-4, slow with his responses. He was brought in from home via EMS, got OOB and sat down and couldn't get up. He did receive a 1L bolus in the ED. He has been using his urinal, but still has some urinary incontinence. Pt. has a hx of cancer (brain/renal) currently doing chemo (last was two weeks ago). He did have a carotid ultrasound done on the floor. A preliminary reading showed bilateral stenosis; more severe on the right side. The patient is resting with his bed in the lowest position, call light in reach, and we'll continue to monitor throughout the shift.
[2021-09-03 04:53] LABS: BASOPHILS ABSOLUTE AUTO 0.01 K/mm3 (0.00-0.23); BASOPHILS PERCENT AUTO 0 % (0-2); EOSINOPHILS ABSOLUTE AUTO 0.01 K/mm3 (0.00-0.68); EOSINOPHILS PERCENT AUTO 0 % (0-6); Hematocrit 33.3 % (37.0-53.0); Hemoglobin 11.3 g/dL (13.5-17.5); IMMATURE GRAN ABSOLUTE AUTO 0.02 K/mm3 (0.00-0.10); IMMATURE GRAN PERCENT AUTO 0 % (0-1); LYMPHOCYTES ABSOLUTE AUTO 0.79 K/mm3 (0.84-5.20); LYMPHOCYTES PERCENT AUTO 8 % (21-46); MONOCYTES ABSOLUTE AUTO 1.54 K/mm3 (0.16-1.47); MONOCYTES PERCENT AUTO 16 % (4-13); Mean Corpuscular HGB 35.4 pg (26.0-34.0); Mean Corpuscular HGB Conc 33.9 g/dL (31.5-36.5); Mean Corpuscular Volume 104 fL (80-100); Mean Platelet Volume 11.6 fL (9.1-12.4); NEUTROPHILS ABSOLUTE AUTO 7.15 K/mm3 (1.96-9.15); NEUTROPHILS PERCENT AUTO 75 % (41-73); Platelet Count 76 K/mm3 (150-400); RDW Coefficient Variation 16.1 % (11.7-14.2); RDW Standard Deviation 62.6 fL (35.1-46.3); Red Blood Cell Count 3.19 M/mm3 (4.30-5.90); White Blood Cell Count 9.52 K/mm3 (4.00-11.30)
[2021-09-03 05:15] LABS: Bun/Creatinine Ratio 10.9 (12.0-20.0); Calcium, Blood 8.7 mg/dL (8.5-10.1); Creatinine, Blood 1.19 mg/dL (0.60-1.20)
--- NOTE | 2021-09-03 06:19 | NUR ---
Pt. A/Ox3-4. ED ADMIT 09/02. VERY WEAK, NOT OOB NOC SHIFT. TELE: SR W/ INVERTED T WAVES. USES URINAL, BUT NOT ALWAYS SUCCESSFUL GETTING IT ALL IN. PIV LF AC SL. RESTING COMFORTABLY, BED ALARM ON, CALL LIGHT IN REACH.
--- NOTE | 2021-09-03 11:49 | NUR ---
ECHOCARDIOGRAM COMPLETE
--- NOTE | 2021-09-03 16:50 | NUR ---
SHIFT SUMMARY PT HAS BEEN RESTING IN BED. CAN TRANSFER WITH ONE PERSON ASSISTANCE TO THE BATHROOM. HIS SCANS TODAY SHOWED PARTIALLY OCCLUDED CAROTIDS AND DR [facility]. STILL WAITING ON VERDICT. AT THE BEDSIDE. WILL CONTINUE TO MONITOR.
--- NOTE | 2021-09-04 05:05 | NUR ---
THE PT. HAS BEEN A/OX2-3 THIS NOC SHIFT. HE DOES NOT USE THE CALL LIGHT AND IS A 1-2 PA GAIT/FWW TO BSC. HE HAS URGENCY SO TYPICALLY DOES NOT MAKE IT TO THE BEDSIDE. TELE: .
[2021-09-04 10:00] LABS: Bun/Creatinine Ratio 16.3 (12.0-20.0); Calcium, Blood 8.9 mg/dL (8.5-10.1); Creatinine, Blood 1.47 mg/dL (0.60-1.20); Magnesium, Blood 1.7 mg/dL (1.6-2.4); Potassium, Blood 4.3 mmol/L (3.5-5.5)
[2021-09-04] MEDS ORDERED: ASPI81CH PO (10:53)
--- NOTE | 2021-09-04 14:43 | NUR ---
DISCHARGE NOTE PT IS AO. PT IV REMOVED BY THIS RN PER DOCUMENTATION. DC INSTRUCTIONS REVIEWED WITH PT AND WHO VERBALIZED UNDERSTANDING. PT ASSISTED INTO HOME CLOTHING BY MULTI TOWNSHIP ASSESSOR. PT BELONGINGS GATHERED FROM ROOM. PT ASSISTED INTO WHEELCHAIR BY MULTI TOWNSHIP ASSESSOR AND LEFT IN PRIVATE VEHICLE WITH BELONGINGS PRESENT.
== END 2021-09-04 14:42 | disposition home or self-care (01) ==
LOC: ER 09:52 → ERHOLD 09:53 → MEDS 19:28
PROVIDERS: Emergency Medicine; Internal Medicine; ADMIT Internal Medicine
DX: R42 Dizziness and giddiness (principal); I25.10 Atherosclerotic heart disease of native coronary artery without angina pectoris; I65.23 Occlusion and stenosis of bilateral carotid arteries; I12.9 Hypertensive chronic kidney disease with stage 1 through stage 4 chronic kidney disease, or unspecified chronic kidney disease; N18.4 Chronic kidney disease, stage 4 (severe); E78.5 Hyperlipidemia, unspecified; C64.9 Malignant neoplasm of unspecified kidney, except renal pelvis; D49.6 Neoplasm of unspecified behavior of brain; I48.91 Unspecified atrial fibrillation; J44.9 Chronic obstructive pulmonary disease, unspecified; D53.9 Nutritional anemia, unspecified; Z95.1 Presence of aortocoronary bypass graft; Z95.0 Presence of cardiac pacemaker; Z88.0 Allergy status to penicillin; Z88.8 Allergy status to other drugs, medicaments and biological substances; Z92.21 Personal history of antineoplastic chemotherapy; Z66 Do not resuscitate; Z90.5 Acquired absence of kidney; Z20.822 Contact with and (suspected) exposure to COVID-19
CPT/HCPCS: 0241U; 36415; 70450; 71045; 80048; 80053; 81001; 83605; 83735; 83880; 84484; 85025; 93005; 93010; 93306; 93880; 96374; 97112; 97116; 97162; 97530; 99285-25; A9270; J0360; J3475; J7030; J7040

== ENCOUNTER 2021-09-05 14:42 | Inpatient (IN) | payer MEDICARE, OTHER ==
[~2021-09-05] VITALS: Ht 180.3 cm; Wt 99.8 kg
[~2021-09-05 14:42] MED LIST changes: +ASPI81CH PO; +METOPROLOL SUCC25 MG PO
[2021-09-05 14:59] LABS: BASOPHILS ABSOLUTE AUTO 0.02 K/mm3 (0.00-0.23); BASOPHILS PERCENT AUTO 0 % (0-2); EOSINOPHILS ABSOLUTE AUTO 0.07 K/mm3 (0.00-0.68); EOSINOPHILS PERCENT AUTO 1 % (0-6); Hematocrit 33.9 % (37.0-53.0); Hemoglobin 11.3 g/dL (13.5-17.5); IMMATURE GRAN ABSOLUTE AUTO 0.03 K/mm3 (0.00-0.10); IMMATURE GRAN PERCENT AUTO 0 % (0-1); LYMPHOCYTES PERCENT AUTO 5 % (21-46); MONOCYTES ABSOLUTE AUTO 1.68 K/mm3 (0.16-1.47); MONOCYTES PERCENT AUTO 14 % (4-13); Mean Corpuscular HGB 35.1 pg (26.0-34.0); Mean Corpuscular HGB Conc 33.3 g/dL (31.5-36.5); Mean Corpuscular Volume 105 fL (80-100); Mean Platelet Volume 11.7 fL (9.1-12.4); NEUTROPHILS ABSOLUTE AUTO 9.53 K/mm3 (1.96-9.15); NEUTROPHILS PERCENT AUTO 80 % (41-73); Platelet Count 160 K/mm3 (150-400); RDW Coefficient Variation 15.5 % (11.7-14.2); RDW Standard Deviation 60.5 fL (35.1-46.3); Red Blood Cell Count 3.22 M/mm3 (4.30-5.90); White Blood Cell Count 11.93 K/mm3 (4.00-11.30)
[2021-09-05 15:24] LABS: Alanine Aminotransfer (ALT/SGP 26 U/L (12-78); Albumin, Blood 2.8 g/dL (3.4-5.0); Albumin/Globulin Ratio 0.7 (0.8-1.8); Alk Phos 82 U/L (50-136); Anion Gap 5 mmol/L (6-16); Aspartate Aminotrans (AST/SGOT 19 U/L (12-37); Bilirubin, Total 0.7 mg/dL (0.1-1.0); Blood Urea Nitrogen 23 mg/dL (8-24); CO2, Blood 26 mmol/L (21-32); Calcium, Blood 8.9 mg/dL (8.5-10.1); Chloride, Blood 103 mmol/L (98-108); Creatinine, Blood 1.44 mg/dL (0.60-1.20); Globulin, Blood 4.1 g/dL (2.2-4.0); Glomerular Filtration Rate 48 (60-); Glucose, Blood 124 mg/dL (70-99); Potassium, Blood 4.4 mmol/L (3.5-5.5); Sodium, Blood 134 mmol/L (136-145); Total Protein, Blood 6.9 g/dL (6.4-8.2); Troponin I <0.015 ng/mL (0.000-0.040)
[2021-09-05 15:45] LABS: Influenza A, PCR NEGATIVE (NEGATIVE); Influenza B, PCR NEGATIVE (NEGATIVE); Resp Syncytial Virus, PCR NEGATIVE (NEGATIVE); SARS-Cov-2 (COVID-19) PCR, MMC NEGATIVE (NEGATIVE)
[2021-09-05 17:28] LABS: Source, Urine Catheter
[2021-09-05 17:35] LABS: Appearance, Urine Clear (Clear); Bilirubin, Urine Neg (Neg); Blood, Urine 2+ (Neg); Color, Urine Yellow (P-Yellow); Glucose Qualitative, Urine Neg (Neg); Ketones, Urine Neg (Neg); Leukocyte Esterase, Urine 1+ (Neg); Nitrite, Urine Neg (Neg); Protein, Urine 2+ (Neg); Urobilinogen, Urine 1+ (Normal)
[2021-09-05 17:57] LABS: Bacteria Few /hpf; Red Blood Cells, Urine 0-2 /hpf (0-2); Squamous Epithelial Cells Few /hpf (Few); White Blood Cells, Urine 0-2 /hpf (0-5)
[2021-09-05 17:58] LABS: Amorphous Light (0-Heavy)
[2021-09-05 22:55] LABS: CPK Creatine Kinase 76 U/L (39-308); Troponin I <0.015 ng/mL (0.000-0.040)
--- NOTE | 2021-09-06 04:58 | NUR ---
PER REPORT ROSE MARY WAS CONFUSED WHEN ADMITTED TO THE ER (UTI SUSPECTED). WHEN HE GOT TO THE MED SURG FLOOR HE WAS ALERT AND ORIENTED TIMES 4. HIS BP HAD COME DOWN. DR. NAM CAME TO EVALUATE HIM AND HE WAS COOPERATIVE. HE AGREED TO TAKE THE FLU SHOT. ANTIBIOTICS WILL START ON 09/06/21 FOR SUSPECTED UTI. HE IS SINUS WITH PVC 1ST DEGREE ON TELE. HR IN THE 80'S. HE HAS A PACEMAKER
[2021-09-06 07:30] LABS: BASOPHILS ABSOLUTE AUTO 0.02 K/mm3 (0.00-0.23); BASOPHILS PERCENT AUTO 0 % (0-2); EOSINOPHILS ABSOLUTE AUTO 0.14 K/mm3 (0.00-0.68); EOSINOPHILS PERCENT AUTO 2 % (0-6); Hematocrit 31.1 % (37.0-53.0); Hemoglobin 10.3 g/dL (13.5-17.5); IMMATURE GRAN ABSOLUTE AUTO 0.02 K/mm3 (0.00-0.10); IMMATURE GRAN PERCENT AUTO 0 % (0-1); LYMPHOCYTES ABSOLUTE AUTO 0.59 K/mm3 (0.84-5.20); LYMPHOCYTES PERCENT AUTO 6 % (21-46); MONOCYTES ABSOLUTE AUTO 1.41 K/mm3 (0.16-1.47); MONOCYTES PERCENT AUTO 15 % (4-13); Mean Corpuscular HGB 34.9 pg (26.0-34.0); Mean Corpuscular HGB Conc 33.1 g/dL (31.5-36.5); Mean Corpuscular Volume 105 fL (80-100); Mean Platelet Volume 11.3 fL (9.1-12.4); NEUTROPHILS ABSOLUTE AUTO 6.98 K/mm3 (1.96-9.15); NEUTROPHILS PERCENT AUTO 76 % (41-73); Platelet Count 165 K/mm3 (150-400); RDW Coefficient Variation 15.3 % (11.7-14.2); RDW Standard Deviation 59.8 fL (35.1-46.3); Red Blood Cell Count 2.95 M/mm3 (4.30-5.90); White Blood Cell Count 9.16 K/mm3 (4.00-11.30)
[2021-09-06 08:20] LABS: Albumin, Blood 2.5 g/dL (3.4-5.0); Albumin/Globulin Ratio 0.8 (0.8-1.8); Bilirubin, Total 0.7 mg/dL (0.1-1.0); Bun/Creatinine Ratio 18.5 (12.0-20.0); Calcium, Blood 8.4 mg/dL (8.5-10.1); Creatinine, Blood 1.3 mg/dL (0.60-1.20); Globulin, Blood 3.1 g/dL (2.2-4.0); Potassium, Blood 4.3 mmol/L (3.5-5.5); Total Protein, Blood 5.6 g/dL (6.4-8.2)
[2021-09-06 09:34] LABS: CPK Creatine Kinase 79 U/L (39-308); Troponin I <0.015 ng/mL (0.000-0.040)
--- NOTE | 2021-09-06 18:30 | NUR ---
SHIFT SUMMARY PATIENT IS AAOX3. UNAWARE OF WHERE HE IS AT THIS TIME AND REMINDED THAT HE IS AT [facility]. DID VISIT HIM ON TODAY AND HE WAS MORE PRESENT AND RESPONDED TO HER WELL. PATIENT HAS GENERALIZED WEAKNESS AND UNABLE TO HELP TO GET UP AND UNSAFE ATTEMPTING TO GET UP WITH ASSIST OF 2. ON RA AND SATS WNL. VSS. NAD NOTED. NO C/O PAIN, SOB, N/V OR DISCOMFORT VOICED AT THIS TIME. CALL LIGHT WITHIN REACH AND BED IN LOW POSITION AND LOCKED WITH BED ALARM ON. WILL CONTINUE TO MONITOR IN CARE.
--- NOTE | 2021-09-07 03:55 | NUR ---
SHIFT SUMMARY: ROSE MARY REMAINED STABLE THROUGHOUT THE SHIFT. HE WAS A BIT FORGETFUL BUT WAS ALERT AND ORIENTED, KNOWS THAT HE WAS AT THE HOSPITAL BUT THOUGHT HE WAS AT [facility] PROBABLY THE HOSPITAL CLOSER TO HIS HOUSE. HE SAID THAT TODAY WAS THE DAY BEFORE CLAY. HE LOGICALLY COMMENTED ON THE NEWS THAT HE WAS WATCHING ON TV. HE HAD A WET COUGH BUT AUSCULATATION OF THE LUNGS WAS UNREMARKABLE, NO NOTICEABLE WHEEZES OR RONCHI. HE VOIDED IN THE URINAL AND A LITTLE BIT IN HIS DIAPER. NO FOUL ODOR IN THE URINE. BLADDER SCAN WAS LESS THAN 93 ML
[2021-09-07] MEDS ORDERED: LEVO750 PO (10:48)
[2021-09-07] MEDS ORDERED: LOSA25 PO (10:48)
[2021-09-07 13:11] LABS: Influenza A, PCR NEGATIVE (NEGATIVE); Influenza B, PCR NEGATIVE (NEGATIVE); Resp Syncytial Virus, PCR NEGATIVE (NEGATIVE); SARS-Cov-2 (COVID-19) PCR, MMC NEGATIVE (NEGATIVE)
--- NOTE | 2021-09-07 15:14 | NUR ---
DISCHARGE SUMMARY PATIENT IS AAOX2 ONLY BUT REORIENTED TO PLACE AND TIME. GOES IN AND OUT OF CONFUSION. HAD 1 BM ON TODAA[place] EARLY AM. IV 20 GAUGE REMOVED FROM LEFT AC AND BANDAIDE APPLIED. PLACED PT ON A BRIEF AND CLOTHES FOR TRANSPORT. VSS. NAD NOTED. HAS NO C/O PAIN SOB, N/V OR DISCOMFORT VOICED. SENT PACKET WITH BOAT JOINER HELPER PERSON. NOTIFIED THAT HE WAS LEAVING FOR [facility] WHEELCHAIR VAN.
== END 2021-09-07 14:53 | DRG 71 ==
LOC: ER 14:42 → MEDS 14:43 → ER 16:18 → MEDS 16:18
PROVIDERS: Emergency Medicine; Student in an Organized Health Care Education/Training Program; ADMIT Internal Medicine
PROC: 3E0234Z Introduction of Serum, Toxoid and Vaccine into Muscle, Percutaneous Approach (ICD-10-PCS; principal; 2021-09-05)
DX: G93.49 Other encephalopathy (principal); N39.0 Urinary tract infection, site not specified; I48.0 Paroxysmal atrial fibrillation; I10 Essential (primary) hypertension; I65.23 Occlusion and stenosis of bilateral carotid arteries; I25.10 Atherosclerotic heart disease of native coronary artery without angina pectoris; Z95.1 Presence of aortocoronary bypass graft; N18.30 Chronic kidney disease, stage 3 unspecified; Z90.5 Acquired absence of kidney; Z85.53 Personal history of malignant neoplasm of renal pelvis; Z88.0 Allergy status to penicillin; Z88.8 Allergy status to other drugs, medicaments and biological substances; E78.5 Hyperlipidemia, unspecified; J44.9 Chronic obstructive pulmonary disease, unspecified; Z79.899 Other long term (current) drug therapy; Z79.82 Long term (current) use of aspirin; E86.0 Dehydration; K59.00 Constipation, unspecified; E78.00 Pure hypercholesterolemia, unspecified; Z20.822 Contact with and (suspected) exposure to COVID-19; Z23 Encounter for immunization
CPT/HCPCS: 0241U; 36415; 51701; 71045; 80053; 81001; 82550; 83605; 84145; 84484; 85025; 87086; 90686; 96365; 96372; 96376; 97110; 97161; 97166; 97530; 99285-25; A9270; G0008; G0378; J1650; J1956; J7030; J7040

== ENCOUNTER 2022-02-07 06:08 | Day surgery (SDC) | payer MEDICARE, OTHER ==
[~2022-02-07] VITALS: Ht 180.3 cm; Wt 102.4 kg
[~2022-02-07 06:08] MED LIST changes: +LEVO750 PO; +LOSA25 PO; +NORVASC2.5 MG PO
--- NOTE | 2022-02-07 08:35 | NUR ---
02/07/22 0835 CRISTIANE KOEHLER [id number] VERN FROM [facility] CALLED BACK; MEDIPORT PLACEMNET IS GOOD PER DR. VILLELA.
== END 2022-02-07 09:10 | disposition home or self-care (01) ==
LOC: ORSCSDS 06:08 → ORSCMMR 07:30 → ORSCSDS 07:30 → ORD 10:30 → ORSCMMR 10:30 → ORSCSDS 10:30
PROVIDERS: Surgery
PROC: B543ZZA Ultrasonography of Right Jugular Veins, Guidance (ICD-10-PCS; principal; 2022-02-07 07:30)
PROC: 05HM33Z Insertion of Infusion Device into Right Internal Jugular Vein, Percutaneous Approach (ICD-10-PCS; principal; 2022-02-07 07:30)
DX: C64.9 Malignant neoplasm of unspecified kidney, except renal pelvis (principal); I25.2 Old myocardial infarction; Z95.0 Presence of cardiac pacemaker; I48.91 Unspecified atrial fibrillation; J44.9 Chronic obstructive pulmonary disease, unspecified; Z87.891 Personal history of nicotine dependence; I12.9 Hypertensive chronic kidney disease with stage 1 through stage 4 chronic kidney disease, or unspecified chronic kidney disease; N18.9 Chronic kidney disease, unspecified; Z79.899 Other long term (current) drug therapy
CPT/HCPCS: 77001; C1788; J0171; J0690; J1100; J1642; J2250; J2370; J2405; J2704; J3010; J7120